=== PATIENT | male | born 1945 | race African-American/Black ===

== ENCOUNTER 2021-10-26 12:56 | Inpatient (IN) | payer OTHER, MEDICAID ==
[~2021-10-26] VITALS: Ht 170.2 cm; Wt 113.4 kg
[2021-10-26] MEDS ORDERED: MORPHINE SULFATE 4 MG/ML CPJ (NOT FOR IM USE) IV STA (13:31)
[2021-10-26] MEDS ORDERED: ONDANSETRON HCL 4MG/2ML INJ IV STA (13:31)
[2021-10-26] MEDS ORDERED: SODIUM CHLORIDE 0.9% 1,000 ML IV ONE (13:45)
[2021-10-26 14:30] LABS: CHLORIDE 107 mEq/L (98-107)
[2021-10-26 14:36] LABS: HEMATOCRIT. 38.7 % (42.0-52.0); HEMOGLOBIN. 12.6 g/dL (14.0-18.0); MEAN CORPUSCULAR HEMOGLOBIN 28.3 pg (28.0-32.0); MEAN PLATELET VOLUME 9.2 fl (7.4-10.4); PLATELET 215 x1000/uL (130-400); RED BLOOD CELL COUNT 4.45 mill/uL (4.7-6.1); RED CELL DISTRIBUTION WIDTH 13.7 % (11.6-14.6)
[2021-10-26 15:26] LABS: CLARITY URINE CLOUDY (CLEAR); COLOR URINE ORANGE (YELLOW); KETONES URINE TRACE (NEGATIVE); LEUKOCYTE ESTERASE URINE 2+ (NEGATIVE); NITRITE URINE POSITIVE (NEGATIVE); OCCULT BLOOD URINE 3+ (NEGATIVE); PH URINE 5.5 (4.5-8.0); PROTEIN URINE 3+ (NEGATIVE); SPECIFIC GRAVITY URINE 1.035 (1.005-1.030)
[2021-10-26] MEDS ORDERED: CEFTRIAXONE 1 G PREMIX 50 ML IV ONE (17:00)
[2021-10-26 18:10] LABS: PLATELET ESTIMATE NORMAL
[2021-10-26] MEDS ORDERED: MORPHINE SULFATE 4 MG/ML CPJ (NOT FOR IM USE) IV ONE (20:30)
[2021-10-26] MEDS ORDERED: ONDANSETRON HCL 4MG/2ML INJ IV ONE (20:30)
[2021-10-27 06:39] VITALS: BP 142/88
[2021-10-27 08:00] VITALS: BP 174/92
[2021-10-27] MEDS ORDERED: ONDANSETRON HCL 4MG/2ML INJ IV PRN (08:30)
[2021-10-27 09:20] LABS: BASOPHILS % 0.2 % (0.0-2.0); HEMATOCRIT. 40.9 % (42.0-52.0); HEMOGLOBIN. 13.5 g/dL (14.0-18.0); LYMPHOCYTES % 8.4 % (20.0-50.0); MEAN CORPUSCULAR HEMOGLOBIN 28.7 pg (28.0-32.0); MEAN CORPUSCULAR VOLUME 86.7 fL (80.0-94.0); MEAN PLATELET VOLUME 9.3 fl (7.4-10.4); MONOCYTES % 8.6 % (2.0-8.0); NEUTROPHILS % 82.8 % (40.0-76.0); PLATELET 207 x1000/uL (130-400); RED BLOOD CELL COUNT 4.71 mill/uL (4.7-6.1); RED CELL DISTRIBUTION WIDTH 14.2 % (11.6-14.6)
[2021-10-27 09:22] LABS: CHLORIDE 106 mEq/L (98-107)
[2021-10-27] MEDS: PIPERACILLIN/TAZOBACTAM 3.375 G in DEXTROSE 5% WATER 50 ML IV SCH ×2 (09:31→13:48)
[2021-10-27] MEDS ORDERED: LEVOFLOXACIN 500MG TABLET PO SCH (11:00)
[2021-10-27] MEDS: FINASTERIDE 5MG TABLET PO SCH (11:08)
[2021-10-27] MEDS: TAMSULOSIN HCL 0.4MG SR CAPSULE PO SCH (11:11)
[2021-10-27] MEDS ORDERED: POTASSIUM CHLORIDE 20MEQ TABLET SR PO NR (11:45)
[2021-10-27 12:00] VITALS: BP 152/74
[2021-10-27 16:00] VITALS: BP 168/96
[2021-10-27 20:00] VITALS: BP 164/83
[2021-10-28] VITALS: BP 146/70
[2021-10-28] MEDS ORDERED: ZOLPIDEM TARTRATE 5MG TABLET PO PRN ×2 (01:15→16:00)
[2021-10-28 04:00] VITALS: BP 129/72
[2021-10-28 08:00] VITALS: BP 118/79
[2021-10-28] MEDS: FINASTERIDE 5MG TABLET PO SCH (08:56)
[2021-10-28] MEDS: TAMSULOSIN HCL 0.4MG SR CAPSULE PO SCH (08:56)
[2021-10-28] MEDS: HYDROCODONE/ACETAMINOPHEN 10/325MG TABLET PO PRN ×2 (08:58→18:55)
[2021-10-28] MEDS: CEFTRIAXONE 1,000 MG in DEXTROSE 5% WATER 50 ML IV SCH (11:54)
[2021-10-28] MEDS: LEVOFLOXACIN 250MG TABLET PO SCH (11:54)
[2021-10-28 12:00] VITALS: BP 109/72
[2021-10-28 16:10] VITALS: BP 147/89
[2021-10-28 17:22] LABS: BASOPHILS % 0.2 % (0.0-2.0); EOSINOPHILS % 1.5 % (0.0-5.0); HEMATOCRIT. 40.3 % (42.0-52.0); HEMOGLOBIN. 13.6 g/dL (14.0-18.0); LYMPHOCYTES % 14.6 % (20.0-50.0); MEAN CORPUSCULAR HEMOGLOBIN 29.1 pg (28.0-32.0); MEAN CORPUSCULAR VOLUME 86.5 fL (80.0-94.0); MEAN PLATELET VOLUME 9.2 fl (7.4-10.4); MONOCYTES % 10.9 % (2.0-8.0); NEUTROPHILS % 72.8 % (40.0-76.0); PLATELET 218 x1000/uL (130-400); RED BLOOD CELL COUNT 4.66 mill/uL (4.7-6.1)
[2021-10-28 20:00] VITALS: BP 126/74
[2021-10-28] MEDS ORDERED: NALOXONE HCL 0.4MG/ML VIAL IV PRN (21:30)
[2021-10-29] VITALS: BP 151/93
[2021-10-29] MEDS: HYDROCODONE/ACETAMINOPHEN 10/325MG TABLET PO PRN ×3 (00:55→22:22)
[2021-10-29 04:00] VITALS: BP 153/88
[2021-10-29 08:00] VITALS: BP 168/94
[2021-10-29] MEDS ORDERED: AMOX1TAB16 MT (08:41)
[2021-10-29] MEDS: FINASTERIDE 5MG TABLET PO SCH (10:01)
[2021-10-29] MEDS: TAMSULOSIN HCL 0.4MG SR CAPSULE PO SCH (10:01)
[2021-10-29] MEDS: LEVOFLOXACIN 250MG TABLET PO SCH (11:13)
[2021-10-29] MEDS: CEFTRIAXONE 1,000 MG in DEXTROSE 5% WATER 50 ML IV SCH (11:13)
[2021-10-29 12:00] VITALS: BP 191/118
[2021-10-29] MEDS ORDERED: HYDRALAZINE HCL 100MG TABLET PO ONE (12:05)
[2021-10-29] MEDS: AMLODIPINE 10MG TABLET PO SCH (12:38)
[2021-10-29 16:00] VITALS: BP 156/95
[2021-10-29 20:00] VITALS: BP 146/87
[2021-10-29] MEDS: HYDRALAZINE HCL 100MG TABLET PO SCH (22:21)
[2021-10-30] VITALS: BP 110/60
[2021-10-30 04:00] VITALS: BP 142/77
[2021-10-30] MEDS: HYDRALAZINE HCL 100MG TABLET PO SCH ×2 (05:36→14:49)
[2021-10-30 08:00] VITALS: BP 110/80
[2021-10-30] MEDS: TAMSULOSIN HCL 0.4MG SR CAPSULE PO SCH (09:35)
[2021-10-30] MEDS: LEVOFLOXACIN 250MG TABLET PO SCH (09:35)
[2021-10-30] MEDS: AMLODIPINE 10MG TABLET PO SCH (09:35)
[2021-10-30] MEDS: FINASTERIDE 5MG TABLET PO SCH (09:35)
[2021-10-30] MEDS: CEFTRIAXONE 1,000 MG in DEXTROSE 5% WATER 50 ML IV SCH (11:28)
[2021-10-30 12:00] VITALS: BP 133/76
== END 2021-10-30 15:33 | disposition home or self-care (01) | DRG 872 ==
LOC: ER 13:20 → MICUSO 20:02 → EDBEDREQ 20:08 → 6EST 10-27 04:43
PROVIDERS: ADMIT Internal Medicine; ATTEND Internal Medicine
PROC: 0T2BX0Z Change Drainage Device in Bladder, External Approach (ICD-10-PCS; principal; 2021-10-29)
DX: A41.9 Sepsis, unspecified organism (principal); N39.0 Urinary tract infection, site not specified; S37.29XA Other injury of bladder, initial encounter; T83.098A Other mechanical complication of other urinary catheter, initial encounter; N43.3 Hydrocele, unspecified; I10 Essential (primary) hypertension; N40.1 Benign prostatic hyperplasia with lower urinary tract symptoms; R31.9 Hematuria, unspecified; Y33.XXXA Other specified events, undetermined intent, initial encounter; Y93.89 Activity, other specified; Y92.89 Other specified places as the place of occurrence of the external cause; Y99.8 Other external cause status
CPT/HCPCS: 36415; 71045; 74176; 76870; 80048; 80053; 81003; 85025; 93005; 93976; 97116; 97162; 97530; 99285; J0696; J2270; J2405; J2543; J7030; J7060; A4315